=== PATIENT | female | born 1960 ===

== ENCOUNTER 2024-03-06 07:00 | Inpatient (IN) | payer OTHER ==
[~2024-03-06] VITALS: Ht 167.6 cm; Wt 110.2 kg
[2024-03-06] MEDS ORDERED: LAMICTAL200 M1 PO (07:59)
[2024-03-06] MEDS ORDERED: COZAAR100 MG PO (08:00)
[2024-03-06 08:12] VITALS: BP 145/86
[2024-03-06 08:33] LABS: URINE APPEARANCE Cloudy; URINE BILIRRUBIN Negative (NEGATIVE); URINE BLOOD Trace; URINE COLOR Yellow; URINE GLUCOSE Negative (NEGATIVE); URINE KETONE Negative (NEGATIVE); URINE LEUKOCYTE Large; URINE NITRATE Negative; URINE PROTEIN Negative (NEGATIVE); URINE UROBILINOGEN 0.2 E.U./dl
[2024-03-06 08:34] LABS: HEMATOCRIT 35.1 % (36.0-45.00); HEMOGLOBIN 11.6 g/dL (12.0-15.00); MEAN CELL VOLUME 89.7 fL (80.00-100.00); MEAN CORPUSCULAR HEMOGLOBIN 29.7 pg (27.00-32.0); MEAN CORPUSCULAR HGB CONC 33.1 g/dl (32.0-36.0); PLATELET COUNT 274 K/uL (150-450); RED BLOOD COUNT 3.91 M/uL (4.00-6.00); RED CELL DISTRIBUTION WIDTH 13.7 % (11.5-14.5)
[2024-03-06 08:37] LABS: URINE BACTERIA 5000.7 uL (0.0-1933); URINE EPITHELIAL CELLS 91.6 uL (0.0-38.8); URINE WBC 423.9 uL (0.0-23.2)
[2024-03-06 09:04] LABS: INR 1.02; PARTIAL THROMBOPLASTIN TIME 27.8 SECONDS (22.0-34.0); PROTHROMBIN TIME 11.1 SECONDS (9.0-11.5)
[2024-03-06 09:42] LABS: ALBUMIN 3.9 gm/dL (3.4-5.0); BILIRUBIN TOTAL 0.54 mg/dL (0.3-1.2); CALCIUM 9.7 mg/dL (8.5-10.1); CREATININE SERUM 0.62 mg/dL (0.55-1.02); GFR 96.6; GLOBULINA 3.8 G/DL (2.4-3.5); POTASSIUM 3.62 mEq/L (3.5-5.1); TOTAL PROTEIN 7.7 gm/dL (6.4-8.2)
[2024-03-06 10:10] LABS: URINE CAST 0.15 uL (0.0-1.40); URINE RBC 1.9 uL (0.0-20.8)
[2024-03-06] MEDS ORDERED: TEGRETOL200 MG PO (11:32)
[2024-03-14] MEDS ORDERED: CEFAZOLIN SODIUM 1,000 MG VIAL ONE ×2 (10:42→16:55)
[2024-03-14] MEDS ORDERED: OxyCODONE HCL/APAP UD (PERCOCET) PO PRN (11:30)
[2024-03-14] MEDS ORDERED: ONDANSETRON HCL 2 MG/ML VIAL IV PRN (11:30)
[2024-03-14] MEDS ORDERED: TRANEXAMIC ACID 100MG/1ML (1000MG) AMPUL IV ONE (11:51)
[2024-03-14] MEDS ORDERED: CEFAZOLIN SODIUM 1,000 MG VIAL IV SCH (12:00)
[2024-03-14] MEDS ORDERED: MORPHINE SULFATE 4 MG/ML CARTRIDGE IV SCH (12:00)
[2024-03-14] MEDS ORDERED: KETOROLAC TROMETHAMINE 60 MG VIAL IM ONE (12:33)
[2024-03-14] MEDS ORDERED: LIDOCAINE HCL 1%/EPINEPHRINE 20ML VIAL IJ ONE (12:33)
[2024-03-14] MEDS ORDERED: MORPHINE SULFATE 4 MG/ML VIAL IV ONE (13:15)
[2024-03-14] MEDS ORDERED: ENALAPRILAT DIHYDRATE 1.25 MG/ML VIAL IV PRN (15:00)
[2024-03-14] MEDS ORDERED: CARBAMAZEPINE 200 MG TABLET PO SCH (17:00)
[2024-03-14 19:20] VITALS: BP 145/86
[2024-03-14] MEDS ORDERED: GABAPENTIN 100 MG CAPSULE PO SCH (21:00)
[2024-03-14] MEDS ORDERED: ORPHENADRINE CITRATE 100 MG TABLET PO SCH (21:00)
[2024-03-14] MEDS ORDERED: FAMOTIDINE/PF 20 MG in 0.9 % SODIUM CHLORIDE 8 ML IV PUSH SCH (21:00)
[2024-03-15] VITALS: BP 132/76
[2024-03-15 02:18] LABS: HEMATOCRIT 33.9 % (36.0-45.00); MEAN CORPUSCULAR HEMOGLOBIN 29.6 pg (27.00-32.0); MEAN CORPUSCULAR HGB CONC 33.3 g/dl (32.0-36.0); PLATELET COUNT 228 K/uL (150-450); RED BLOOD COUNT 3.81 M/uL (4.00-6.00); RED CELL DISTRIBUTION WIDTH 14.6 % (11.5-14.5)
[2024-03-15 02:22] LABS: HEMOGLOBIN 11.3 g/dL (12.0-15.00)
[2024-03-15 08:46] VITALS: BP 134/77
[2024-03-15] MEDS ORDERED: ENOXAPARIN SODIUM 30 MG/0.3 ML SYRINGE SUBCUTANEO SCH (09:00)
[2024-03-15] MEDS ORDERED: LAMICTAL 200 MG PO SCH (09:00)
[2024-03-15] MEDS ORDERED: LOSARTAN POTASSIUM 100 MG TABLET PO SCH (09:00)
[2024-03-15] MEDS ORDERED: FAMOTIDINE/PF 20 MG/2 ML VIAL ONE (16:14)
[2024-03-15] MEDS ORDERED: VITAMIN B COMPLEX 1 EACH PO SCH (17:00)
[2024-03-15] MEDS ORDERED: SOD FERRIC GLUC COMPLX/SUCROSE 62.5 MG/5 ML AMPUL IV SCH (17:00)
[2024-03-15] MEDS ORDERED: Cyanocobalamin/Mecobalamin 1 TAB.SL SL SCH (17:00)
[2024-03-15 17:51] VITALS: BP 157/76
[2024-03-16 02:09] VITALS: BP 159/75
[2024-03-16 03:41] LABS: HEMATOCRIT 31.5 % (36.0-45.00); HEMOGLOBIN 10.4 g/dL (12.0-15.00); MEAN CELL VOLUME 90.1 fL (80.00-100.00); MEAN CORPUSCULAR HEMOGLOBIN 29.8 pg (27.00-32.0); MEAN CORPUSCULAR HGB CONC 33.1 g/dl (32.0-36.0); PLATELET COUNT 193 K/uL (150-450); RED BLOOD COUNT 3.49 M/uL (4.00-6.00); RED CELL DISTRIBUTION WIDTH 13.9 % (11.5-14.5)
[2024-03-16 08:00] VITALS: BP 121/79
[2024-03-16] MEDS ORDERED: LAMICTAL 200 MG PO SCH (09:00)
[2024-03-16] MEDS ORDERED: NORFLEX100MG PO (10:36)
[2024-03-16] MEDS ORDERED: GABAPENTIN100 MG PO (10:37)
[2024-03-16] MEDS ORDERED: OXYC1TAB9 PO (10:37)
[2024-03-16] MEDS ORDERED: XARELTO10 MG PO (10:37)
[2024-03-16 16:00] VITALS: BP 90/63
== END 2024-03-16 18:20 | disposition home or self-care (01) | DRG 470 ==
LOC: O/R 03-14 06:04 → SURH 03-14 07:00 → OB/GYN 03-14 16:20
PROVIDERS: ADMIT Orthopaedic Surgery; ATTEND Orthopaedic Surgery
PROC: 0SRC0JZ Replacement of Right Knee Joint with Synthetic Substitute, Open Approach (ICD-10-PCS; principal; 2024-03-14 13:00)
DX: M17.11 Unilateral primary osteoarthritis, right knee (principal); D62 Acute posthemorrhagic anemia; M85.661 Other cyst of bone, right lower leg; I10 Essential (primary) hypertension